=== PATIENT | male | born 1990 ===

== ENCOUNTER 2024-01-23 09:57 | Emergency (ER) | payer OTHER, SELFPAY ==
[2024-01-23 10:20] VITALS: BP 159/73; PULSE 89; RESP 18; TEMP 36.7; O2SAT 96; BMI 30.7
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
[2024-01-23] MEDS: ACETAMINOPHEN 500 MG TABLET 1000 MG PO (10:41)
[2024-01-23 11:39] VITALS: BP 159/73; PULSE 89; RESP 18; TEMP 36.7
== END 2024-01-23 11:40 | disposition home or self-care (01) ==
PROVIDERS: Emergency Provider Family Medicine
DX: S16.1XXA Strain of muscle, fascia and tendon at neck level, initial encounter (principal); V43.92XA Unspecified car occupant injured in collision with other type car in traffic accident, initial encounter
CPT/HCPCS: 70450; 72125; 99283; 99284; A9270

== ENCOUNTER 2024-11-25 11:15 | Outpatient (CLI) | payer OTHER, SELFPAY | END 2024-11-25 11:16 | disposition home or self-care (01) | LOC: NFLDREF 11-26 03:11 | PROVIDERS: Visit Provider Physician Assistant Medical | DX: R53.83 Other fatigue (principal); R42 Dizziness and giddiness; F41.9 Anxiety disorder, unspecified | CPT/HCPCS: 80053; 80061; 82306; 82607; 82728; 84443 ==

== ENCOUNTER 2025-01-01 07:04 | Outpatient (CLI) | payer OTHER, SELFPAY ==
--- NOTE | 2025-01-01 07:15 | CRLHL7_ITS ---
For Patients: As a result of the Century Cures Act, medical imaging exams and procedure reports are released immediately into your electronic medical record. You may view this report before your referring provider. If you have questions, please contact your health care provider. INDICATION: Elevated liver function tests TECHNIQUE: Ultrasound abdomen limited. Sonographic images of the right upper quadrant were obtained using miranda-scale and color Doppler images. COMPARISON: None FINDINGS: Liver: Normal in size and echotexture. No masses. No intrahepatic biliary dilatation. Portal vein patent and hepatopetal. Gallbladder: No stones or sludge. Normal wall thickness. No pericholecystic fluid. Common bile duct: 4 mm. Pancreas: Pancreas partially obscured by bowel gas without discrete lesion. Right kidney: Normal in size. Normal echotexture and cortex. No masses, stones, or hydronephrosis. Vasculature: Proximal abdominal aorta and IVC are normal. IMPRESSION: Unremarkable right upper quadrant ultrasound. Dictated by Casimiro Su MD @ 01/01/2025 7:51:39 AM (Electronically Signed)
== END 2025-01-01 07:05 | disposition home or self-care (01) ==
LOC: US 07:04
PROVIDERS: PCP Physician Assistant Medical; Visit Provider Physician Assistant Medical
DX: R79.89 Other specified abnormal findings of blood chemistry (principal)
CPT/HCPCS: 76705

== ENCOUNTER 2025-03-30 13:46 | Outpatient (CLI) | payer OTHER, SELFPAY | END 2025-03-30 13:47 | disposition home or self-care (01) | LOC: NFLDREF 13:46 | PROVIDERS: PCP Physician Assistant Medical; Visit Provider Family Medicine | DX: R79.89 Other specified abnormal findings of blood chemistry (principal) | CPT/HCPCS: 80076 ==